=== PATIENT | male | born 2000 | race Caucasian/White ===

== ENCOUNTER 2025-06-22 18:16 | Emergency (ER) | payer OTHER ==
[~2025-06-22] VITALS: Ht 182.9 cm; Wt 65.5 kg
[2025-06-22] MEDS ORDERED: CELEBREX200 MG PO (20:04)
[2025-06-22] MEDS ORDERED: CYCLOBENZAPRINE10 MG PO (20:04)
[2025-06-22] MEDS ORDERED: CYCLOBENZAPRINE HCL 10 MG HOME.PACK PO ONE (20:15)
[2025-06-22 20:35] VITALS: BP 124/75
== END 2025-06-22 20:35 | disposition home or self-care (01) ==
LOC: ED 18:16
DX: S46.911A Strain of unspecified muscle, fascia and tendon at shoulder and upper arm level, right arm, initial encounter (principal); Z88.0 Allergy status to penicillin; V43.52XA Car driver injured in collision with other type car in traffic accident, initial encounter
CPT/HCPCS: 73030; 99284